=== PATIENT | male | born 1960 | race Two or more races ===

== ENCOUNTER 2020-06-09 10:14 | Inpatient (IN) | payer OTHER ==
[~2020-06-09] VITALS: Ht 165.1 cm; Wt 91.9 kg
--- NOTE | 2020-06-09 10:36 | PHYS DOC ---
General Adult EDM: Chief Complaint: NEURO SYMPTOMS/DEFICITS HPI: HPI: 59-year-old male past medical history of hypertension (admits to medication noncompliance due to lack of refills), presents to the ED with complaints of left-sided facial drooping, left arm and left leg weakness that started around 2 AM while patient was having sexual intercourse with his . Code stroke was activated shortly after patient arrived in the ED (did not come by ems). Patient on any anticoagulants. Reports he thought it was his blood pressure- systolic was 164 so he took his lisinopril. Repeat systolic was 157 and he took amlodipine. Patient states he could not sleep and his left-sided weakness persisted so he came to emergency department. No prior history of stroke or Covid. Review of Systems: Review of Systems: Constitutional: Denies fever or chills. [] Eyes: Denies change in visual acuity. [] HENT: Denies nasal congestion or sore throat. [] Respiratory: Denies cough or shortness of breath. [] Cardiovascular: Denies chest pain or edema. [] GI: Denies abdominal pain, nausea, vomiting, bloody stools or diarrhea. [] : Denies dysuria. [] Musculoskeletal: Denies back pain or joint pain. [] Integument: Denies rash. [] Neurologic: Denies headache, neck stiffness Endocrine: Denies polyuria or polydipsia. [] Lymphatic: Denies swollen glands. [] Psychiatric: Denies depression or anxiety. [] Heart Score: Risk Factors: Risk Factors: DM, Current or recent (<one month) smoker, HTN, HLP, family history of CAD, obesity. Risk Scores: Score 0 - 3: 2.5% MACE over next 6 weeks - Discharge Home Score 4 - 6: 20.3% MACE over next 6 weeks - Admit for Clinical Observation Score 7 - 10: 72.7% MACE over next 6 weeks - Early Invasive Strategies Physical Exam: PE: Constitutional: Well developed, well nourished, no acute distress, non-toxic appearance. HENT: Normocephalic, atraumatic, Eyes: PERRLA, EOMI, conjunctiva normal, no discharge. Neck: Normal range of motion, supple, Cardiovascular: S1/2 present, regular rhythm Lungs & Thorax: Speaking in full sentences, bilateral equal chest rise, no tachypnea or increased work of breathing Abdomen: soft, no tenderness, Skin: Warm, dry, no erythema, no rash. [] Back: No tenderness, no CVA tenderness. [] Extremities: No tenderness, no cyanosis, no edema Neurologic: Alert and oriented X 3, CN2-12 bl []3 points NIH Stroke Scale, n Psychologic: Affect normal, judgement normal, mood normal. [] EKG: EKG: Sinus rhythm at 69 bpm, -with only discordance on EKG, normal intervals, no ST elevations or ST depressions Sinus rhythm at 71 bpm, no axis deviation, normal intervals, T wave inversion lead III, no ST elevations or ST depressions, no limb lead discordance on repeat EKG, patient with no active chest pain Radiology/Procedures: Radiology/Procedures: IMAGING REPORT Signed PATIENT: OTONIEL ECKERT ACCOUNT: [id number] : 1960 LOCATION: ER AGE: 59 SEX: M EXAM STATUS: REG ER ORD. PHYSICIAN: ESTHELA COTTO DO REASON: left sided weak, OMNI 300 INJ 75 MLS PROCEDURE: CTA HEAD/NECK - CODE STROKE CT angiogram of the head and neck with contrast: Reason for examination: Left-sided weakness. Helical images were obtained through the head and neck with intravenous administration of 75 cc Omnipaque 300 using angiographic protocol. 3-D MIPS reconstruction was performed in sagittal and coronal planes and volume rendered images were obtained. Exposure: One or more of the following individualized dose reduction techniques were utilized for this examination: 1. Automated exposure control 2. Adjustment of the mA and/or kV according to patient size 3. Use of iterative reconstruction technique. The intracranial carotid arteries appear to be patent with no stenosis or occlusion seen. There is normal bifurcation into the anterior and middle cerebral arteries bilaterally. The vertebral arteries show normal confluence to the basilar artery without occlusion or obstruction. No abnormalities of seen at the superior cerebellar and posterior cerebral arteries. No aneurysms or arterial venous malformations are seen. The dural sinuses and cerebral veins appear to be patent. The thoracic aortic arch shows no aneurysm or dissection. There is normal origin of the right brachiocephalic artery, left common carotid artery and left subclavian arteries from the arch. The vertebral arteries arise from their respective subclavian arteries and show no stenoses or occlusions. The common carotid arteries bilaterally are patent with no stenoses. No abnormalities are seen at the carotid bulbs. No significant stenosis is evident bilaterally at the internal carotid arteries or external carotid arteries. Jugular veins are patent. The lung apices are clear. No abnormality seen at the thyroid gland. The trachea and visualized portion of the esophagus show no abnormalities. Vocal cords are symmetric. The vallecula and piriform sinuses are symmetric. No abnormalities of seen at the parotid or submandibular glands. Muscular bundles in the neck appear to be symmetric. There are small nonspecific lymph nodes in the neck which are probably reactive. The vertebral bodies of the cervical spine are normally aligned anteriorly and posteriorly. No acute fracture or subluxation is seen. There are however some mild degenerative changes. Prevertebral soft tissues are normal. IMPRESSION: No vascular abnormality evident in the head or neck. Small nonspecific lymph nodes in the neck which are probably reactive. Electronically signed by: Randi Vega MD (06/09/2020 11:17 AM) [facility] DICTATED and SIGNED BY: RANDI VEGA MD DATE: 06/09/20 [id number] IMAGING REPORT Signed PATIENT: OTONIEL ECKERT ACCOUNT: [id number] : 1960 LOCATION: ER AGE: 59 SEX: M EXAM STATUS: PRE ER ORD. PHYSICIAN: ESTHELA COTTO DO REASON: left sided weak PROCEDURE: CT CODE STROKE HEAD WO CT head without contrast: Reason for examination: Left-sided weakness. Code stroke. Axial images were obtained through the brain. No contrast was administered. Exposure: One or more of the following individualized dose reduction techniques were utilized for this examination: 1. Automated exposure control 2. Adjustment of the mA and/or kV according to patient size 3. Use of iterative reconstruction technique. Ventricular systems are symmetric and not dilated. No midline shift is seen. There is no evidence of intracranial hemorrhage, infarct, mass or edema. No abnormalities of seen at the orbits. The paranasal sinuses and mastoid air cells are clear. No acute abnormality seen at the skull. IMPRESSION: No acute intracranial abnormalities evident. FOR INTERNAL CODING PURPOSES Critical result: Findings discussed with Dr. Esthela Cotto at 06/09/2020 10:51 AM. RESULT CODE: (C) Electronically signed by: Randi Vega MD (06/09/2020 10:54 AM) [facility] DICTATED and SIGNED BY: RANDI VEGA MD DATE: 06/09/20 [id number] IMAGING REPORT Signed PATIENT: OTONIEL ECKERT ACCOUNT: [id number] : 1960 LOCATION: ER AGE: 59 SEX: M EXAM STATUS: PRE ER ORD. PHYSICIAN: ESTHELA COTTO DO REASON: left weakness PROCEDURE: PORTABLE CHEST 1V Chest AP portable at 1039: Reason for examination: Left-sided weakness. The heart size is normal. Mediastinum is unremarkable. Lung fitch are clear. No acute bony abnormalities are seen. Impression: No acute cardiopulmonary disease. Electronically signed by: Randi Vega MD (06/09/2020 11:01 AM) [facility] DICTATED and SIGNED BY: RANDI VEGA MD DATE: 06/09/20 [id number] Course & Med Decision Making: Course & Med Decision Making Pertinent Labs and Imaging studies reviewed. (See chart for details) Concern for left upper and lower extremity weakness with sensation of left lower lip drooping. Patient only complains of weakness in his left leg. Will admit for neurology consultation and MRI. Patient stable at time of admission and agrees with this plan. I have spoken with the patient and/or caregivers. I have explained the patient's condition, diagnosis and treatment plan based on the information available to me at this time. I have answered the patient's and/or caregivers questions and answered any concerns. The patient and/or caregivers have as good an understanding of the patient's diagnosis, condition and treatment plan as can be expected at this point. The patient has been stabilized within the capability of the emergency department. The patient will be transported for further care and management or will be moved to an observation or inpatient service. I have communicated with the staff or medical practitioner taking over this patient's care. Dragon Disclaimer: Dragstephen Disclaimer: This electronic medical record was generated, in whole or in part, using a voice recognition dictation system. Departure Departure Impression: Primary Impression: Left-sided weakness Disposition: ADMITTED INPT THIS HOSP Admitting Physician: DOLORES (Dr. Yan) Condition: STABLE ESTHELA COTTO DO Jun 09, 2020 10:36
[2020-06-09 10:50] LABS: BASO # 0.1 x10^3/uL (0.0-0.2); BASO % 1 % (0-3); EOS # 0.1 x10^3/uL (0.0-0.7); EOS % 1 % (0-3); HEMATOCRIT 47.1 % (39.0-53.0); HEMOGLOBIN 15.7 g/dL (13.0-17.5); LYMPH # 1.6 x10^3/uL (1.0-4.8); LYMPH % 26 % (24-48); MEAN CORPUSCULAR HEMOGLOBIN 27 pg (25-35); MEAN CORPUSCULAR HGB CONC 33 g/dL (31-37); MEAN CORPUSCULAR VOLUME 81 fL (79-100); MONO # 0.5 x10^3/uL (0.0-1.1); MONO % 9 % (0-9); NEUT % 63 % (31-73); PLATELET COUNT 228 x10^3/uL (140-400); RED BLOOD COUNT 5.83 x10^6/uL (4.30-5.70); RED CELL DISTRIBUTION WIDTH 14.3 % (11.5-14.5); WHITE BLOOD COUNT 6.3 x10^3/uL (4.0-11.0)
--- NOTE | 2020-06-09 10:57 | RAD ---
CT head without contrast: Reason for examination: Left-sided weakness. Code stroke. Axial images were obtained through the brain. No contrast was administered. Exposure: One or more of the following individualized dose reduction techniques were utilized for thi s examination: 1. Automated exposure control 2. Adjustment of the mA and/or kV according to patient size 3. Use of iterative reconstruction technique. Ventricular systems are symmetric and not dilated. No midline shift is seen. There is no evidence of intracranial hemorrhage, infarct, mass or edema. No abnormalities of seen at the orbits. The paranasa l sinuses and mastoid air cells are clear. No acute abnormality seen at the skull. IMPRESSION: No acute intracranial abnormalities evident. FOR INTERNAL CODING PURPOSES Critical result: Findings discussed with Dr. Esthela Tatum at 06/09/2020 10:51 AM. RESULT CODE: (C) Electronically signed by: Randi Prakash MD (06/09/2020 10:54 AM) [facility]
[2020-06-09] MEDS ORDERED: CONTRAST GIVEN. MC PRN (11:00)
[2020-06-09] MEDS ORDERED: IOHEXOL 300 MG/ML 100ML VIAL. IV ONE (11:00)
[2020-06-09 11:02] LABS: CALCIUM 8.8 mg/dL (8.5-10.1); CREATININE 0.9 mg/dL (0.7-1.3); GFR 85.8; POTASSIUM 4.3 mmol/L (3.5-5.1)
[2020-06-09 11:05] LABS: PROTHROMBIN TIME PATIENT 12.2 SEC (11.7-14.0)
--- NOTE | 2020-06-09 11:07 | RAD ---
Chest AP portable at 1039: Reason for examination: Left-sided weakness. The heart size is normal. Mediastinum is unremarkable. Lung fitch are clear. No acute bony abnormali ties are seen. Impression: No acute cardiopulmonary disease. Electronically signed by: Randi Prakash MD (06/09/2020 11:01 AM) [facility]
--- NOTE | 2020-06-09 11:21 | RAD ---
CT angiogram of the head and neck with contrast: Reason for examination: Left-sided weakness. Helical images were obtained through the head and neck with intravenous administration of 75 cc Omnip aque 300 using angiographic protocol. 3-D MIPS reconstruction was performed in sagittal and coronal p lanes and volume rendered images were obtained. Exposure: One or more of the following individualized dose reduction techniques were utilized for thi s examination: 1. Automated exposure control 2. Adjustment of the mA and/or kV according to patient size 3. Use of iterative reconstruction technique. The intracranial carotid arteries appear to be patent with no stenosis or occlusion seen. There is no rmal bifurcation into the anterior and middle cerebral arteries bilaterally. The vertebral arteries s how normal confluence to the basilar artery without occlusion or obstruction. No abnormalities of see n at the superior cerebellar and posterior cerebral arteries. No aneurysms or arterial venous malform ations are seen. The dural sinuses and cerebral veins appear to be patent. The thoracic aortic arch shows no aneurysm or dissection. There is normal origin of the right brachio cephalic artery, left common carotid artery and left subclavian arteries from the arch. The vertebral arteries arise from their respective subclavian arteries and show no stenoses or occlusions. The com mon carotid arteries bilaterally are patent with no stenoses. No abnormalities are seen at the caroti d bulbs. No significant stenosis is evident bilaterally at the internal carotid arteries or external carotid arteries. Jugular veins are patent. The lung apices are clear. No abnormality seen at the thyroid gland. The trachea and visualized porti on of the esophagus show no abnormalities. Vocal cords are symmetric. The vallecula and piriform sinu ses are symmetric. No abnormalities of seen at the parotid or submandibular glands. Muscular bundles in the neck appear to be symmetric. There are small nonspecific lymph nodes in the neck which are pro bably reactive. The vertebral bodies of the cervical spine are normally aligned anteriorly and specimen preparation assistant iorly. No acute fracture or subluxation is seen. There are however some mild degenerative changes. Pr evertebral soft tissues are normal. IMPRESSION: No vascular abnormality evident in the head or neck. Small nonspecific lymph nodes in the neck which are probably reactive. Electronically signed by: Randi Prakash MD (06/09/2020 11:17 AM) [facility]
[2020-06-09] MEDS ORDERED: ONDANSETRON PF 4 MG/2 ML VIAL. IV PRN (12:30)
[2020-06-09] MEDS ORDERED: ACETAMINOPHEN 325 MG TABLET. PO PRN (12:30)
--- NOTE | 2020-06-09 12:51 | HP ---
ADMIT DATE: 06/09/2020 CHIEF COMPLAINT: Neurologic symptoms with left-sided weakness. HISTORY OF PRESENT ILLNESS: The patient is a pleasant 59-year-old male who was noncompliant with his medications, in terms of blood pressure meds. Basically now his pressures up into the 160s. He also was having some left-sided weakness, on the left leg, left arm. This all started about 2:00 a.m. while he was having sexual intercourse with his . Rates his symptoms 01/18. He took his home meds that seemed to drop his pressure down, but he is still having some left-sided weakness. I discussed the case with ER physician. We are going to admit the patient and consult Neurology. PAST MEDICAL HISTORY: Hypertension, noncompliance. ALLERGIES: None. FAMILY HISTORY: Diabetes. SOCIAL HISTORY: Does not drink, smoke or take drugs. MEDICATIONS: Reviewed, please refer to the MRAD. REVIEW OF SYSTEMS: GENERAL: No history of weight change, weakness or fevers. SKIN: No bruising, hair changes or rashes. EYES: No blurred, double or loss of vision. NOSE AND THROAT: No history of nosebleeds, hoarseness or sore throat. HEART: No history of palpitations, chest pain or shortness of breath on exertion. LUNGS: Denies cough, hemoptysis, wheezing or shortness of breath. GASTROINTESTINAL: Denies changes in appetite, nausea, vomiting, diarrhea or constipation. GENITOURINARY: No history of frequency, urgency, hesitancy or nocturia. NEUROLOGIC: He is complaining of some slight left-sided weakness. PSYCHIATRIC: No history of panic, anxiety or depression. ENDOCRINE: No history of heat or cold intolerance, polyuria or polydipsia. EXTREMITIES: Denies muscle weakness, joint pain, pain on walking or stiffness. PHYSICAL EXAMINATION: VITALS: Within normal limits and are stable. GENERAL: No apparent distress. Alert and oriented. HEENT: Normal cephalic atraumatic, external auditory canals are patent EYES: Extraocular muscles are intact, pupils are equally round and reactive to light and accommodation MUSCULOSKELETAL: Well developed, well nourished, good range of motion ENDOCRINE: No thyromegaly was palpated LYMPHATICS: No cervical chain or axillary nodes were noted HEMATOPOIETIC: No bruising NECK: Supple, no JVD, no thyromegaly was noted. LUNGS: Clear to auscultation in all lung fitch without rhonchi or wheezing. HEART: RRR, S1, S2 present. Peripheral pulses intact, no obvious murmurs were noted. ABDOMEN: Soft, nontender. Positive bowel sounds no organomegaly, normal bowel sounds. EXTREMITIES: Without any cyanosis, clubbing, or edema. Pedal pulses intact, Homans sign is negative. NEUROLOGIC: He has some slight left-sided weakness. PSYCHIATRIC: Normal affect, normal mood. Stable. SKIN: No ulcerations or rashes, good skin turgor, no jaundice. VASCULAR: Good capillary refill, neurovascular bundle appears to be intact. LABORATORY DATA: White count 6. CT of the head was negative. ASSESSMENT AND PLAN: Resolving stroke symptoms and hypertensive urgency. The patient will be admitted. We will consult Dr. Pickard p.r.n. antihypertensives, home meds, DVT prophylaxis. Full code. PT, OT, cardiac monitoring. KHADAR INFANTE DO DR: KI/kellie JOB#: [id number] / [id number]
[2020-06-09] MEDS ORDERED: ASPIRIN CHEWABLE 81 MG TABLET. PO ONE (14:00)
[2020-06-09 15:15] VITALS: BP 145/82
[2020-06-09] MEDS ORDERED: AMLO-186 PO (16:09)
[2020-06-09] MEDS ORDERED: METF500T16 PO (16:09)
[2020-06-09] MEDS ORDERED: LISI-517 PO (16:09)
[2020-06-09] MEDS: INSULIN LISPRO 300 UNITS/3 ML VIAL. SQ SCH (17:00)
[2020-06-09] MEDS ORDERED: DEXTROSE 50% 25 GM / 50ML DISP.SYRIN. IV PRN (17:00)
[2020-06-09] MEDS: LISINOPRIL 5 MG TABLET. PO SCH (18:00)
[2020-06-09] MEDS: amLODIPine BESYLATE 5 MG TABLET PO SCH (18:00)
[2020-06-09 19:40] VITALS: BP 126/63
[2020-06-09] MEDS ORDERED: INSULIN GLARGINE SYRINGE. SQ SCH (21:00)
[2020-06-09 23:10] VITALS: BP 126/67
[2020-06-10 03:40] VITALS: BP 122/57
--- NOTE | 2020-06-10 04:05 | EKG ---
[facility] [address] [place] [address] Test Date: 2020-06-09 Test Time: 14:05:13 Pat Name: OTONIEL ECKERT Department: Room: Gender: [employer] Architect: : 1960 Requested By: FLAKITA COTTO Order Number: [id number] Reading MD: Measurements Intervals [place] Rate: 71 P: 41 VT: 188 QRS: 23 QRSD: 82 T: 23 QT: 374 QTc: 411 Interpretive Statements SINUS RHYTHM LEFT ATRIAL ABNORMALITY ABNORMAL ECG RI6.02 No previous ECG available for comparison
[2020-06-10 07:00] VITALS: BP 127/77
[2020-06-10] MEDS: INSULIN LISPRO 300 UNITS/3 ML VIAL. SQ SCH ×2 (08:00→12:00)
[2020-06-10] MEDS: amLODIPine BESYLATE 5 MG TABLET PO SCH (08:49)
[2020-06-10] MEDS: LISINOPRIL 5 MG TABLET. PO SCH (08:50)
[2020-06-10 11:00] VITALS: BP 141/70
--- NOTE | 2020-06-10 12:21 | RAD ---
EXAM: Brain MRI without contrast. HISTORY: Transient ischemic attack. TECHNIQUE: Multiplanar, multisequence magnetic resonance imaging of the brain was performed without c ontrast. COMPARISON: CT dated 06/09/2020. FINDINGS: There is a small focus of restricted diffusion within the junction of the right thalamus an d right putamen, consistent with an acute infarct. There is no mass effect or midline shift. There is no hydrocephalus. There aren't few focal areas of signal change within the cerebral white matter, li [place] due to chronic small vessel disease. The orbits, paranasal sinuses mastoid air cells are unremarkable. There are normal flow voids within the cerebral vessels. There is no calvarial lesion. IMPRESSION: 1. Small acute infarct at the junction of the right thalamus and right basal ganglia. 2. Bilateral cerebral white matter changes, likely due to chronic small vessel disease. Findings were discussed with Lay, the nurse caring for the patient, at 1200 hours on 06/10/2020. FOR INTERNAL CODING PURPOSES RESULT CODE: (C) Electronically signed by: Didi Wise MD (06/10/2020 12:07 PM) [facility]
--- NOTE | 2020-06-10 13:39 | PDOC ---
[facility] PROGRESS NOTE Date of Service DOS: DATE: 06/10/20 TIME: 13:35 Chief Complaint Chief Complaint Acute left-sided weakness due to acute stroke, small acute infarct at the junction of the right thalamus and right basal cannula Hypertensive urgency Continue aspirin and atorvastatin Appreciate neuro recommendations Continue PT OT speech modalities Lovenox once okay with neuro for DVT prophylaxis Protonix GI prophylaxis ADA diet Full code Discussed with RN and SW Disposition inpatient management as above Surrogate decision maker is the Marissa NoreenjaReynoldjessikasudarshan History of Present Illness History of Present Illness 06/10/2020 No acute events tonight. No new focal neurological defects. No complaints voiced at this time. Patient's chart, labs, images were reviewed and discussed with RN 59-year-old male who was noncompliant with his medications, in terms of blood pressure meds. Basically now his pressures up into the 160s. He also was having some left-sided weakness, on the left leg, left arm. This all started about 2:00 a.m. while he was having sexual intercourse with his . Rates his symptoms 9/10. He took his home meds that seemed to drop his pressure down, but he is still having some left-sided weakness. Vitals/I&O Vitals/I&O: Vital Signs Date Time Temp Pulse Resp B/P (MAP) Pulse Ox O2 Delivery O2 Flow Rate FiO2 06/10/20 11:00 97.6 68 18 141/70 (93) 95 Room Air 97.6 I & O 06/09/20 06/09/20 06/10/20 15:00 23:00 07:00 Intake Total 250 ml 200 ml Output Total 200 ml 0 ml Balance 50 ml 200 ml Physical Exam General: Alert, Oriented X3 Heart: No murmurs Abdomen: No tenderness Extremities: No edema, Normal pulses Skin: No significant lesion Labs Labs: Laboratory Tests Test 06/09/20 16:43 06/09/20 20:50 06/10/20 08:11 Glucose (Fingerstick) 125 mg/dL (70-99) 111 mg/dL (70-99) 135 mg/dL (70-99) Assessment and Plan Assessmemt and Plan Problems Medical Problems: (1) Left-sided weakness Status: Acute Comment Review of Relevant I have reviewed the following items angela (where applicable) has been applied. Medications: Current Medications Medications (Trade) Dose Ordered Sig/Pilar Route PRN Reason Start Time Stop Time Status Last Admin Dose Admin Aspirin (Aspirin Chewable) 324 mg 1X ONCE PO 06/09/20 14:00 06/09/20 14:01 DC 06/09/20 14:29 Insulin Glargine (Lantus Syringe) 10 unit QHS SQ 06/09/20 21:00 06/09/20 21:28 Amlodipine Besylate (Norvasc) 5 mg DAILY PO 06/09/20 18:00 06/10/20 08:49 Lisinopril (Prinivil) 5 mg DAILY PO 06/09/20 18:00 06/10/20 08:50 Justifications for Admission Other Justification RADHA BRUNSON MD Jun 10, 2020 13:39
--- NOTE | 2020-06-10 13:55 | PDOC2 ---
NEUROLOGY CONSULT Date of Service DOS: DATE: 06/10/20 TIME: 13:50 Reason for Consult Reason for Consult: Stroke Referring Physician Referring Physician: Dr. Ayala Source Source: Chart review, Patient History of Present Illness History of Present Illness The patient is a 59-year-old right-handed male who admits to noncompliance with medications, he developed left-sided weakness after sex early yesterday morning about 1 AM. He presented to the emergency department too late for consideration of alteplase. He is feeling better today. There is no prior history of stroke, seizure, or head injury. Past Medical History Cardiovascular: HTN, Hyperlipidemia Endocrine: Diabetes Past Surgical History Past Surgical History: No pertinent history Family History Family History: No pertinent hx Social History Social History , non-smoker, no alcohol Current Medications Current Medications Current Medications Iohexol (Omnipaque 300 Mg/ml) 75 ml 1X ONCE IV Last administered on 06/09/20at 10:59; Start 06/09/20 at 11:00; Stop 06/09/20 at 11:01; Status DC Info (CONTRAST GIVEN -- Rx MONITORING) 1 each PRN DAILY PRN MC SEE COMMENTS; Start 06/09/20 at 11:00; Stop 06/11/20 at 10:59 Ondansetron HCl (Zofran) 4 mg PRN Q8HRS PRN IV NAUSEA/VOMITING; Start 06/09/20 at 12:30; Stop 06/10/20 at 12:29; Status DC Acetaminophen (Tylenol) 650 mg PRN Q4HRS PRN PO FEVER > 100.3'F; Start 06/09/20 at 12:30; Stop 06/10/20 at 12:29; Status DC Aspirin (Aspirin Chewable) 324 mg 1X ONCE PO Last administered on 06/09/20at 14:29; Start 06/09/20 at 14:00; Stop 06/09/20 at 14:01; Status DC Insulin Glargine (Lantus Syringe) 10 unit QHS SQ Last administered on 06/09/20at 21:28; Start 06/09/20 at 21:00 Insulin Human Lispro (HumaLOG) 0-7 UNITS TIDWMEALS SQ ; Start 06/09/20 at 17:00 Dextrose (Dextrose 50%-Water Syringe) 12.5 gm PRN Q15MIN PRN IV SEE COMMENTS; Start 06/09/20 at 17:00 Amlodipine Besylate (Norvasc) 5 mg DAILY PO Last administered on 06/10/20at 08:49; Start 06/09/20 at 18:00 Lisinopril (Prinivil) 5 mg DAILY PO Last administered on 06/10/20at 08:50; Start 06/09/20 at 18:00 Atorvastatin Calcium (Lipitor) 40 mg QHS PO ; Start 06/10/20 at 21:00 Active Scripts Active Reported Metformin Hcl 500 Mg Tablet 500 Mg PO BIDWMEALS Lisinopril 5 Mg Tablet 5 Mg PO DAILY Amlodipine Besylate 5 Mg Tablet 5 Mg PO DAILY Allergies Allergies: Coded Allergies: No Known Drug Allergies (Unverified , 06/09/20) ROS Review of System Negative for fever, chills, weight loss, shortness of breath, chest pain, indigestion, hematochezia, melena, and dysuria. Full 14-point review of systems is negative. Physical Exam Physical Examination General: Well-developed, well-nourished male in no acute distress HEENT: Normocephalic andatraumatic. Temporal arteriespulsatile and nontender. Neck: Supple without bruit, no meningismus Musculoskeletal: Stability:see neurologic. Gait exam:see neurologic. Tone:see neurologic.Strength:see neurologic. Neurological: Mental Status:intact, orientation, memory, attention span/concentration, language, fund of knowledge normal. Cranial Nerves:Pupils equal and reactive to light, extraocular movements areintact, visual fitch are full to confrontation. Facial sensation is normal. There is a slight central left facial weakness. Vestibulo-ocular reflex is intact. Palate elevates and tongue protrudes in midline. All other cranial related problems are negative except as mentioned before.Reflexes:2+ and symmetric with flexor plantar responses. Motor:5-/5 left-sided strength with normal tone and bulk. Coordination:Finger- nose finger and [id number] testing are normal. Rapid alternating movements and fine finger movements are intact. Gait:Normal, including tandem. Sensory:Normal pinprick, vibration, light touch, proprioception. Vitals VITALS Vital Signs Date Time Temp Pulse Resp B/P (MAP) Pulse Ox O2 Delivery O2 Flow Rate FiO2 06/10/20 11:00 97.6 68 18 141/70 (93) 95 Room Air 97.6 Labs Labs Laboratory Tests Test 06/09/20 10:35 06/09/20 16:43 06/09/20 20:50 06/10/20 08:11 White Blood Count 6.3 x10^3/uL (4.0-11.0) Red Blood Count 5.83 x10^6/uL (4.30-5.70) Hemoglobin 15.7 g/dL (13.0-17.5) Hematocrit 47.1 % (39.0-53.0) Mean Corpuscular Volume 81 fL (79-100) Mean Corpuscular Hemoglobin 27 pg (25-35) Mean Corpuscular Hemoglobin Concent 33 g/dL (31-37) Red Cell Distribution Width 14.3 % (11.5-14.5) Platelet Count 228 x10^3/uL (140-400) Neutrophils (%) (Auto) 63 % (31-73) Lymphocytes (%) (Auto) 26 % (24-48) Monocytes (%) (Auto) 9 % (0-9) Eosinophils (%) (Auto) 1 % (0-3) Basophils (%) (Auto) 1 % (0-3) Neutrophils # (Auto) 4.0 x10^3/uL (1.8-7.7) Lymphocytes # (Auto) 1.6 x10^3/uL (1.0-4.8) Monocytes # (Auto) 0.5 x10^3/uL (0.0-1.1) Eosinophils # (Auto) 0.1 x10^3/uL (0.0-0.7) Basophils # (Auto) 0.1 x10^3/uL (0.0-0.2) Prothrombin Time 12.2 SEC (11.7-14.0) Prothromb Time International Ratio 0.9 (0.8-1.1) Activated Partial Thromboplast Time 28 SEC (24-38) Sodium Level 136 mmol/L (136-145) Potassium Level 4.3 mmol/L (3.5-5.1) Chloride Level 102 mmol/L (98-107) Carbon Dioxide Level 25 mmol/L (21-32) Anion Gap 9 (6-14) Blood Urea Nitrogen 12 mg/dL (8-26) Creatinine 0.9 mg/dL (0.7-1.3) Estimated GFR (Cockcroft-Gault) 85.8 Glucose Level 125 mg/dL (70-99) Calcium Level 8.8 mg/dL (8.5-10.1) Troponin I Quantitative < 0.017 ng/mL (0.000-0.055) Glucose (Fingerstick) 125 mg/dL (70-99) 111 mg/dL (70-99) 135 mg/dL (70-99) Laboratory Tests Test 06/09/20 16:43 06/09/20 20:50 06/10/20 08:11 Glucose (Fingerstick) 125 mg/dL (70-99) 111 mg/dL (70-99) 135 mg/dL (70-99) Images Images Brain MRI without contrast. HISTORY: Transient ischemic attack. TECHNIQUE: Multiplanar, multisequence magnetic resonance imaging of the brain was performed without contrast. COMPARISON: CT dated 06/09/2020. FINDINGS: There is a small focus of restricted diffusion within the junction of the right thalamus and right putamen, consistent with an acute infarct. There is no mass effect or midline shift. There is no hydrocephalus. There aren't few focal areas of signal change within the cerebral white matter, likely due to chronic small vessel disease. The orbits, paranasal sinuses mastoid air cells are unremarkable. There are normal flow voids within the cerebral vessels. There is no calvarial lesion. IMPRESSION: 1. Small acute infarct at the junction of the right thalamus and right basal ganglia. 2. Bilateral cerebral white matter changes, likely due to chronic small vessel disease. CT angiogram of the head and neck with contrast: Reason for examination: Left-sided weakness. Helical images were obtained through the head and neck with intravenous administration of 75 cc Omnipaque 300 using angiographic protocol. 3-D MIPS reconstruction was performed in sagittal and coronal planes and volume rendered images were obtained. Exposure: One or more of the following individualized dose reduction techniques were utilized for this examination: 1. Automated exposure control 2. Adjustment of the mA and/or kV according to patient size 3. Use of iterative reconstruction technique. The intracranial carotid arteries appear to be patent with no stenosis or occlusion seen. There is normal bifurcation into the anterior and middle cerebral arteries bilaterally. The vertebral arteries show normal confluence to the basilar artery without occlusion or obstruction. No abnormalities of seen at the superior cerebellar and posterior cerebral arteries. No aneurysms or arterial venous malformations are seen. The dural sinuses and cerebral veins appear to be patent. The thoracic aortic arch shows no aneurysm or dissection. There is normal origin of the right brachiocephalic artery, left common carotid artery and left subclavian arteries from the arch. The vertebral arteries arise from their respective subclavian arteries and show no stenoses or occlusions. The common carotid arteries bilaterally are patent with no stenoses. No abnormalities are seen at the carotid bulbs. No significant stenosis is evident bilaterally at the internal carotid arteries or external carotid arteries. Jugular veins are patent. The lung apices are clear. No abnormality seen at the thyroid gland. The trachea and visualized portion of the esophagus show no abnormalities. Vocal cords are symmetric. The vallecula and piriform sinuses are symmetric. No abnormalities of seen at the parotid or submandibular glands. Muscular bundles in the neck appear to be symmetric. There are small nonspecific lymph nodes in the neck which are probably reactive. The vertebral bodies of the cervical spine are normally aligned anteriorly and posteriorly. No acute fracture or subluxation is seen. There are however some mild degenerative changes. Prevertebral soft tissues are normal. IMPRESSION: No vascular abnormality evident in the head or neck. Small nonspecific lymph nodes in the neck which are probably reactive. Assessment/Plan Assessment/Plan Impression: Small right thalamic lacunar type infarct Hypertension, diabetes, hyperlipidemia, noncompliant Recommendations: Continue aspirin and atorvastatin Has had speech evaluation, await physical therapy, I suspect he can go home today and does not appear to need any type of further therapy I stressed compliance with his medications. He needs an outpatient echocardiogram, that can be arranged by his primary care provider. Follow-up with neurology as needed. Provided stroke education including activating emergency medical services Thank you for letting me help with the patient's care. JACKI ELMORE MD Jun 10, 2020 13:55
[2020-06-10] MEDS ORDERED: ASPI-630 PO (14:16)
[2020-06-10] MEDS ORDERED: ATOR40TA59 PO (14:16)
--- NOTE | 2020-06-10 14:17 | DISCH ---
DISCHARGE INSTRUCTIONS Condition on Discharge Condition on Discharge: Stable Activity After Discharge Activity Instructions for Disc: Activity as tolerated Lifting Instructions after Dis: Do not lift >10 pounds Exercise Instruction after Dis: Walk 15 min, 3 x per day Driving Instructions after Dis: Do not drive today Weight Bearing Status after Di: As tolerated Diet after Discharge Diet after Discharge: Cardiac, Diabetic No Calorie Level Checks after Discharge Checks after discharge: Check blood press - daily, Check blood sugar, ac/hs DC Comment: CBC, CMP within 1 week at discharge Follow-Up Follow up with: PCP within 1 week at discharge Follow Up With: Outpatient echocardiogram needed with cardiology RADHA REYES MD Jun 10, 2020 14:17
[2020-06-10 15:00] VITALS: BP 129/71
[2020-06-10 16:31] LABS: CHOLESTEROL/HDL RATIO 9.2
--- NOTE | 2020-06-10 17:05 | NUR ---
Discharge Note: MARCOS ECKRET BRONX Discharge instructions and discharge home medications reviewed with and a copy given. All questions have been answered and understanding verbalized. The following instructions and handouts were given: stroke education, medication education, lower lipid education, follow up instructions Discontinued lines and drains: bilateral peripheral IV's discontinued, dressing clean, dry and intact. Patient discharged to with via wheelchair
[2020-06-10] MEDS ORDERED: ATORVASTATIN CALCIUM 40 MG TABLET. PO SCH (21:00)
--- NOTE | 2020-06-12 12:32 | EKG ---
[facility] [address] [place] [address] Test Date: 2020-06-09 Test Time: 10:34:33 Pat Name: OTONIEL ECKERT Department: Room: Gender: M Director [employer]: : 1960 Requested By: FLAKITA COTTO Order Number: [id number] Reading MD: Measurements Intervals [place] Rate: 69 P: 144 [place]: 192 QRS: 169 QRSD: 80 T: 164 QT: 374 QTc: 402 Interpretive Statements SUPRAVENTRICULAR RHYTHM ABNORMAL RIGHT AXIS DEVIATION QRS(T) CONTOUR ABNORMALITY CONSISTENT WITH HIGH LATERAL INFARCT AGE UNDETERMINED T ABNORMALITY IN INFERIOR LEADS ABNORMAL ECG RI6.02 No previous ECG available for comparison
== END 2020-06-10 16:40 | disposition home or self-care (01) | DRG 66 ==
LOC: ER 10:14 → ED HOLD 11:30 → 2 NORTH 13:27
PROVIDERS: ADMIT Internal Medicine; ATTEND Internal Medicine
DX: I63.81 Other cerebral infarction due to occlusion or stenosis of small artery (principal); I10 Essential (primary) hypertension; Z91.14 Patient's other noncompliance with medication regimen; E78.5 Hyperlipidemia, unspecified; E11.9 Type 2 diabetes mellitus without complications; I16.0 Hypertensive urgency; Z83.3 Family history of diabetes mellitus
CPT/HCPCS: 36415; 70450; 70496; 70498; 70551; 71045; 80048; 80061; 82962; 84484; 85025; 85610; 85730; 93005; 99285; J1815; Q9967; 92610-GN; G0378